=== PATIENT | male | born 1930 | race Caucasian/White ===

== ENCOUNTER 2016-07-17 18:50 | Inpatient (IN) | payer MEDICARE, BC ==
[~2016-07-17] VITALS: Ht 175.3 cm; Wt 113.9 kg
[2016-07-17 18:52] VITALS: BP 133/70
[2016-07-17] MEDS ORDERED: PERCOCET 5/3251 EACH PO (19:02)
[2016-07-17] MEDS ORDERED: PERCOCET1 TAB PO (19:03)
[2016-07-17] MEDS ORDERED: METFORMIN 500M500 MG PO (19:04)
[2016-07-17] MEDS ORDERED: METOPROLOL SUCC50 M1 PO (19:04)
[2016-07-17] MEDS ORDERED: WARFARIN SODIUM1 MG PO (19:05)
[2016-07-17] MEDS ORDERED: HYDROCHLOROTHIA25 M1 PO (19:05)
[2016-07-17] MEDS ORDERED: SYMBICORT1 AE1 IH (19:06)
--- NOTE | 2016-07-17 19:15 | Emergency Room Report ---
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 Y Clinical Suspician of Infection? Y Mental Status: 1 - Regular (Normal Baseline) Sepsis Risk:Possible Sepsis Risk Have you (or family members/close friends) recently traveled outside the [place]? N If Yes, where/when: Have you had exposure to infectious disease within the past month? N TB? Other? Specify: Source patient, RN notes reviewed Exam Limitations no limitations Comment Flu like symptoms with productive cougha dn SOA for a couple of days. Low grade fever today. History of COPD and uses inhalers and nebs at home but not on home O2 Cardiac Chest Pain Chest pain indicative of cardiac No Home Medications Reported Medications Oxycodone 5MG/[id number] (Oxycodone-Acetaminophen 5-325) 1 TAB PO Q4HP PRN PAIN OXYCODONE HCL/ACETAMINOPHEN (Percocet 5-325 MG Tablet) 1 TAB PO EVERY 6 HOUR Metoprolol Succinate Xl (Metoprolol ER 50MG) 50 MG PO DAILY METFORMIN HCL (Metformin 500MG) 500 MG PO BID WARFARIN SOD (Warfarin 1MG) 2 MG PO DAILY HYDROCHLOROTHIAZIDE (Hydrochlorothiazide) 25 MG PO DAILY BUDESONIDE/FORMOTEROL FUMARATE (Symbicort 160-4.5 Mcg Inhaler) 2 PUFF IH BID (Mabel KOO,Elvira) Timing/Duration this evening Severity moderate ALLERGIES Coded Allergies: No Known Allergies (07/17/16) (Elisa KOO,Baldemar Hernandez) History Medical History General CAD? Yes Angina: No ND: No Hypertension? Yes Hyperlipidemia? Yes CHF? No DVT? Yes PE? No COPD? Yes Asthma? Yes Anemia? No GERD? Yes Gastric ulcers? No GI Bleed? No Hernia? Yes Thyroid Problems? No Hypothyroidism? No CVA? No Seizures? No Diabetes? Yes Insulin Dependent: No Insulin Pump: No Home FSBS? Yes Renal Insuffiency? No End Stage Renal Disease? No UTI? No Stones? No BPH? No GB Disease: No Nephritic Syndrome? No Asplenia? No Hepatitis? No Sickle Cell Disease? No Arthritis? Yes Migraines? No Cataracts? Yes Glaucoma? No MRSA? No HIV? No TB? No Anxiety? No Depression? 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 Immunization Hx DT/Tetanus Unknown Surgical Hx Previous Surgery?Y BLADDER SURGERY , Appy, Bilat. cataracts, RIH Social History Smoking Hx Smoker: Former Smoker Tobacco: No Are you/the child exposed to second-hand smoke: No Alcohol Alcohol: No (Elvira Monroe MD) Social History Drugs none (Baldemar Pérez MD) Review of Systems All Other Systems Reviewed and Negative Constitutional see HPI ENT see HPI. Respiratory see HPI (Elvira Monroe MD) Cardiovascular denies chest pain Gastrointestinal denies diarrhea, denies vomiting Genitourinary denies: dysuria, frequency, hesitancy, hematuria. Musculoskeletal denies back pain, denies joint pain, denies joint swelling, denies neck pain Skin denies rash Psychiatric/Neurological denies seizure (Baldemar Pérez MD) Physical Exam Vital Signs Vital Signs Date Time Temp Pulse Resp B/P Pulse O2 O2 Flow FiO2 Ox Delivery Rate 07/17 2016 102.7 129 22 132/67 88 07/17 2006 100.5 112 22 132/67 88 07/17 1930 118 20 150/70 92 2 07/17 1910 20 94 2 07/17 1908 20 94 2 07/17 1852 100.2 112 20 133/70 94 2 General Appearance normal appearance, WD/WN, no apparent distress Ear, Nose, Throat normal ENT inspection Respiratory Status No: respiratory distress. Lung Sounds posterior: rales. right: rales. 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 2 or more SIRS Criteria Met? B/P:132/67 MAP:91 Creatinine >2.0? UA output<0.5ml/kg/hr for 2 hrs? Platelet count >100,000? Lactate >2.0mmol/1? INR >1.2 or PTT > than 60 sec? Evidence of Organ Dysfunction? Provider documented clinical suspician of infection? Y Sepsis Criteria Count: 2 Sepsis Risk: Possible Sepsis Risk Eye Exam - bilateral eye PERRL Gastrointestinal soft Extremities no calf tenderness, pedal edema Strength 4 Upper Ext (L), 4 Upper Ext (R), 4 Lower Ext (L), 4 Lower Ext (R) Mental status normal mood/affect Skin intact (Elisa KOO,Baldemar Hernandez) Medical Decision Making LABS/Meds/Orders Pt receiving controlled substance in ED? No Results/Orders Laboratory Tests 07/17/162030: ABG pH 7.49 H, ABG pCO2 (Temp Corrct 43.2, ABG pO2 (Temp Correct 56.3 L, ABG HCO3 31.9 H, ABG Total CO2 33.2 H, ABG O2 Sat (Calculated) 89.4 L, ABG Base Excess 8.5 H, Otto Test Y, Blood Gas Comments R/R 07/17/161920: Influenza Type A Ag DETECTED H, Influenza Type B Ag NOT DETECTED 07/17/161914: Urine Color YELLOW, Urine Appearance CLEAR, Urine pH 8.0, Ur Specific [place] 1.015, Urine Protein 1+ H, Urine Ketones NEGATIVE, Urine Blood 3+ H, Urine Nitrate NEGATIVE, Urine Bilirubin NEGATIVE, Urine Urobilinogen 0.2, Ur Leukocyte Esterase NEGATIVE, Urine RBC 20-50, Urine WBC 5-10, Ur Squamous Epith Cells OCC, Urine Glucose NEGATIVE 07/17/161854: Lactic Acid 2.0 07/17/161854: B-Natriuretic Peptide 160 H 07/17/161854: Sodium 137, Potassium 3.2 L, Chloride 95 L, Carbon Dioxide 33 H, BUN 11, Creatinine 0.8, Estimated Creat Clear 110, Estimated GFR (MDRD) 92, Glucose 160 H, Calcium 9.3, Total Bilirubin 0.7, AST 17, ALT 15, Alkaline Phosphatase 49, Creatine Kinase 76, CK-MB (CK-2) Rel Index 0.7, CK and CKMB Interp < 0.5, Troponin I < 0.02, Total Protein 8.1, Albumin 3.3 L, Globulin 4.8 H, Albumin/ Globulin Ratio 0.7 L, WBC 12.8 H, RBC 4.70, Hgb 11.4 L, Hct 36.5 L, MCV 77.7 L, RDW 16.0, Plt Count 311, MPV 5.9 L, Gran % 76.9, Gran # 9.8 H, Lymphocytes % 11.5, Monocytes % 11.2 H, Eosinophils % 0.1, Basophils % 0.3, Lymphocytes # 1.5, Monocytes # 1.4 H, Eosinophils # 0.0, Basophils # 0.0, PUBS MCHC 31.2 L, MCH 24.2 L Current Medication Orders Sig/Fannie Start time Last Medication Dose Route Stop Time Status Admin Ceftriaxone Sodium 0 .STK-MED ONE 07/17 2053 DC IV Acetaminophen 1,000 MG ONCE ONE 07/17 2029 DC 07/17 PO 07/17 Acetaminophen 0 .STK-MED ONE 07/17 2017 DC PO Levofloxacin/Dextrose 100 ML ONCE ONE 07/18 1999 r 07/17 IV 07/17 Oseltamivir Phosphate 75 MG ONCE ONE 07/18 1999 DC 07/17 PO 07/17 Levofloxacin/Dextrose 100 ML .STK-MED ONE 07/17 1957 DC IV Oseltamivir Phosphate 0 .STK-MED ONE 07/17 1953 DC PO Albuterol/Ipratropium 0 .STK-MED ONE 07/17 1930 DC INH Albuterol/Ipratropium 3 ML ONCE ONE 07/17 1929 DC 07/17 INH 07/17 1930 194 Sodium Chloride 10 ML PRN PRN 07/17 1914 AC IV 07/18 1910 Orders Procedure Date/time Status DIET-NOTHING BY MOUTH 07/18 B Active ARTERIAL BLOOD GAS REQUEST 07/17 1948 Active BRAIN NATRIURETIC PEPTIDE 07/17 1946 Complete CHEST-PORTABLE 07/17 1925 Active CULTURE, THROAT 07/17 1920 Active RT REQUEST DUONEB 07/18 1919 Active CULTURE, SPUTUM 07/18 1919 Active STREP SCREEN THROAT 07/18 1919 Complete INFLUENZA A&B ANTIGENS 07/18 1919 Complete IV SALINE LOCK 07/18 1911 Active CULTURE, BLOOD 07/18 1911 Active URINALYSIS/COMPLETE 07/18 1911 Complete LACTIC ACID 07/18 1911 Complete CBC WITH AUTO DIFF 07/18 1911 Complete CARDIAC ENZYMES 07/18 1911 Complete CHEM 12 PROFILE 07/18 1911 Complete LABS/Meds/Orders Pt receiving controlled substance in ED? No XRAY/CT/US XRAY/CT/US XRAY chest XR interpretation by reviewed by me Xray Results abnormal (possible rll cap) (Baldemar Pérez MD) Departure Departure Time of Disposition 1956 Disposition Still a Patient Clinical Impression Primary Impression: RLL pneumonia Qualifiers: Pneumonia type: due to unspecified organism Qualified Code: J18.9 - Pneumonia, unspecified organism Secondary Impressions: Influenza A Condition STABLE Patient Instructions DI for Influenza -- Adult, Influenza Discharge Counseling Counseled pt/family regarding diagnosis, test results, medications/RX, follow up needs ED Critical Care Critical Care No If Critical Care minutes are documented, the time involved in the performance of seperately reportable procedures was not counted toward critical care time documented. I directly delivered medical care to this critically ill and/or injured patient. Timely evaluation and treatment was necessary to address the significant organ system(s) dysfunction present in this patient. (Elvira Monroe MD) Departure Referrals SUSIE CAMACHO (Family) discussed with dr munroe (Baldemar Pérez MD) at 195 at 2055
[2016-07-17 19:21] LABS: URINE BILIRUBIN - DIPSTICK NEGATIVE (NEG); URINE BLOOD 3+ (NEG)
[2016-07-17 19:26] LABS: HEMOGLOBIN 11.4 g/dL (14.1-18.0); LYMPH # 1.5 K/mm3 (0.7-4.5); LYMPH % 11.5 % (10-50)
[2016-07-17 19:27] LABS: URINE SQUAMOUS CELLS OCC #/hpf (OCC)
[2016-07-17 19:42] LABS: BUN 11 mg/dL (7-18)
[2016-07-17 19:44] LABS: GFR (ESTIMATED) 92 ML/MIN (>60)
[2016-07-17 19:44] LABS: STREP SCREEN (RAPID) NEGATIVE
[2016-07-17 20:32] LABS: ARTERIAL PO2 56.3 MMHG (80-100); ARTERIAL TCO2 33.2 MMOL/L (23-27)
[2016-07-17 20:33] LABS: ALLEN'S TEST Y; ARTERIAL ABE 8.5 MMOL/L (-2.4-+2.3); OXYGEN R/A
[2016-07-17 21:51] VITALS: BP 105/34
[2016-07-17 23:12] VITALS: BP 105/34
[2016-07-17 23:57] VITALS: BP 104/47
[2016-07-18] VITALS (8 sets, daily range): BP systolic 114–168; BP diastolic 60–85
[2016-07-18 06:45] LABS: HEMOGLOBIN 10.6 g/dL (14.1-18.0); LYMPH # 1.6 K/mm3 (0.7-4.5); LYMPH % 12.8 % (10-50)
--- NOTE | 2016-07-18 09:50 | RADIOLOGY REPORT PS360 ---
CHEST-PORTABLE ORDERING PHYSICIAN : Elvira Monroe MD PATIENT AGE: 86 years GENDER: Male INDICATION: Short of breath. Cough.SOA, COUGH No previous PROCEDURE: CHEST-PORTABLE FINDINGS: No previous studies. Leftward Rotated chest film demonstrates what appears to be mild vascular congestion possible mild CHF. Cardiomegaly noted. Postsurgical changes project over right jaqui. Blunting right CP angle with question mild pleural thickening blunting towards right lung base. Possible small right pleural effusion versus chronic pleural changes. Likely underlying chronic changes. Right base. . There is increased density right lung base-Difficult to exclude a subtle early infiltrate at the right lung base on this limited portable study in this very large patient. If symptoms progress a follow-up PA and lateral chest would be suggested. Benign Calcified granuloma left midlung IMPRESSION. Cardiomegaly with mild vascular congestion. Blunting right CP angle could reflect small pleural effusion vs mild chronic pleural change. Question minimal patchy infiltrate at right lung base, right lower lobe. If symptoms progress a follow-up PA and lateral chest suggested
--- NOTE | 2016-07-18 11:52 | PHARMACY CLINIC NOTE ---
Patient Demographics Patient Demographics Admission date: 07/17/16 Date: 07/18/16 Time: 1151 Allergies Coded Allergies: No Known Allergies (07/17/16) HEIGHT- FT: 5 IN: 9.00 K.387 VTE General Information Labs: Laboratory Tests 07/18 07/17 0605 1855 Coagulation PT (9.4 - 11.8 SECONDS) 16.0 H INR (0.9 - 1.1) 1.50 H Hematology Hgb (14.1 - 18.0 g/dL) 10.6 L 11.4 L Hct (42.0 - 52.0 %) 33.2 L 36.5 L Plt Count (142 - 424 K/mm3) 264 311 Disclaimer The following section includes nursing documentation that has been pulled in for pharmacy review. Patient's VTE score: 5 Patient's VTE Risk: LOW RISK Clinical trial participant? No VTE prophylaxis [id number] VTE prophylaxis ordered? Yes Type of prophylaxis/treatment: HARRY (AND WARFARIN (1.50)) at 1152
--- NOTE | 2016-07-18 12:31 | HISTORY AND PHYSICAL REPORT ---
History and Physical (FCA) Date of admission: 07/17/16 Chief complaint: Cough and fever History: History of Present Illness: 86 year old male who receives his primary care at [facility] in [place], [place], presented to [facility] ER yesterday complaining of a 2 day history of cough and congestion associated with low grade fever and body aches. Patient can not remember any sick contacts. He has not taken any treatment at home. He is somewhat of a poor historian and no family is present at time of this exam. Most of the history is learned from discussion with the ER doctor and the ER note. Past Medical History: Medical History: CAD? Yes Angina: No [place]: No Hypertension? Yes Hyperlipidemia? Yes CHF? No DVT? Yes PE? No COPD? Yes Asthma? Yes Anemia? No GERD? Yes Gastric ulcers? No GI Bleed? No Hernia? Yes Thyroid Problems? No Hypothyroidism? No CVA? No Seizures? No Diabetes? Yes Insulin Dependent: No Insulin Pump: No Home FSBS? Yes Renal Insuffiency? No UTI? No Stones? No BPH? No GB Disease: No Nephritic Syndrome? No Asplenia? No Hepatitis? No Sickle Cell Disease? No Arthritis? Yes Migraines? No Cataracts? Yes Glaucoma? No MRSA? No HIV? No TB? No Anxiety? No Depression? 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 Surgical history: Previous Surgery?Y BLADDER SURGERY APPY [facility] Medications: Reported Medications OXYCODONE HCL/ACETAMINOPHEN (Percocet 5-325 MG Tablet) 1 TAB PO EVERY 6 HOUR Metoprolol Succinate Xl (Metoprolol ER 50MG) 50 MG PO DAILY METFORMIN HCL (Metformin 500MG) 500 MG PO BID WARFARIN SOD (Warfarin 1MG) 2 MG PO DAILY HYDROCHLOROTHIAZIDE (Hydrochlorothiazide) 25 MG PO DAILY BUDESONIDE/FORMOTEROL FUMARATE (Symbicort 160-4.5 Mcg Inhaler) 2 PUFF IH BID Allergies: Coded Allergies: No Known Allergies (07/17/16) Family History: Family history: Postive for: unknown. Social History: Smoking Hx Tobacco: No Smoker: Former Smoker Type: Cigarettes Packs/day: 1 1/2 - 2 Packs Are you exposed to second hand No Alcohol: Alcohol: No Hx of Drug Use: Drug Use? No Review of Systems: Patient unresponsive? No Constitutional Positive for: fatigue. Cardiovascular No: chest pain. GI No: diarrhea. (male) No: urgency. Skin No: rash. Neurological No: dizziness. Eyes No: vision loss. Heme No: bleeding. Psychiatric No: delusional. 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 as tested, no focal deficit Lab data: Labs: Laboratory Tests 07/18/16 1114: POC Glucose 124 H 07/18/16 0644: POC Glucose 128 H 07/18/16 0605: Sodium 139, Potassium 3.3 L, Chloride 97 L, Carbon Dioxide 34 H, BUN 14, Creatinine 0.9, Estimated Creat Clear 57, Estimated GFR (MDRD) 80, Glucose 140 H, Calcium 9.0, WBC 12.1 H, RBC 4.22 L, Hgb 10.6 L, Hct 33.2 L, MCV 78.6 L, RDW 16.1, Plt Count 264, MPV 5.9 L, Gran % 78.3, Gran # 9.5 H, Lymphocytes % 12.8, Monocytes % 8.5, Eosinophils % 0.0 L, Basophils % 0.3, Lymphocytes # 1.6, Monocytes # 1.0, Eosinophils # 0.0, Basophils # 0.0, PUBS MCHC 31.9, MCH 25.1 L 07/17/162030: ABG pH 7.49 H, ABG pCO2 (Temp Corrct 43.2, ABG pO2 (Temp Correct 56.3 L, ABG HCO3 31.9 H, ABG Total CO2 33.2 H, ABG O2 Sat (Calculated) 89.4 L, ABG Base Excess 8.5 H, Otto Test Y, Blood Gas Comments R/R 07/17/161920: Influenza Type A Ag DETECTED H, Influenza Type B Ag NOT DETECTED 07/17/161914: Urine Color YELLOW, Urine Appearance CLEAR, Urine pH 8.0, Ur Specific [place] 1.015, Urine Protein 1+ H, Urine Ketones NEGATIVE, Urine Blood 3+ H, Urine Nitrate NEGATIVE, Urine Bilirubin NEGATIVE, Urine Urobilinogen 0.2, Ur Leukocyte Esterase NEGATIVE, Urine RBC 20-50, Urine WBC 5-10, Ur Squamous Epith Cells OCC, Urine Glucose NEGATIVE 07/17/161854: Lactic Acid 2.0 07/17/161854: B-Natriuretic Peptide 160 H 07/17/161854: Sodium 137, Potassium 3.2 L, Chloride 95 L, Carbon Dioxide 33 H, BUN 11, Creatinine 0.8, Estimated Creat Clear 110, Estimated GFR (MDRD) 92, Glucose 160 H, Calcium 9.3, Total Bilirubin 0.7, AST 17, ALT 15, Alkaline Phosphatase 49, Creatine Kinase 76, CK-MB (CK-2) Rel Index 0.7, CK and CKMB Interp < 0.5, Troponin I < 0.02, Total Protein 8.1, Albumin 3.3 L, Globulin 4.8 H, Albumin/ Globulin Ratio 0.7 L, PT 16.0 H, INR 1.50 H, WBC 12.8 H, RBC 4.70, Hgb 11.4 L, Hct 36.5 L, MCV 77.7 L, RDW 16.0, Plt Count 311, MPV 5.9 L, Gran % 76.9, Gran # 9.8 H, Lymphocytes % 11.5, Monocytes % 11.2 H, Eosinophils % 0.1, Basophils % 0.3, Lymphocytes # 1.5, Monocytes # 1.4 H, Eosinophils # 0.0, Basophils # 0.0, PUBS MCHC 31.2 L, MCH 24.2 L Microbiology 07/17 1920 THROAT: Throat Culture - RECD 07/17 1854 BLOOD: Anaerobic Blood Culture - RECD 07/17 1854 BLOOD: Aerobic Blood Culture - RECD 07/17 1854 BLOOD: Anaerobic Blood Culture - RECD 07/17 1854 BLOOD: Aerobic Blood Culture - RECD Radiology results: Results: CXR shows a RLL pneumonia Diagnosis(es): 1. RLL pneumonia Status: Acute 2. Influenza A Status: Acute 3. Hypokalemia Status: Acute 4. DM2 (diabetes mellitus, type 2) Status: Chronic 5. HTN (hypertension) Status: Chronic 6. 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 Subtherapeutic international normalized ratio (INR) 8. Leg edema, right Status: Chronic 9. Obesity Status: Chronic Plan: Patient admitted to [facility] for further treatment of his pneumonia and influenza. Will give extra dose of Coumadin today and replace potassium. at [id number]
--- NOTE | 2016-07-18 12:31 | HISTORY AND PHYSICAL REPORT ---
History and Physical (FCA) Date of admission: 07/17/16 Chief complaint: Cough and fever History: History of Present Illness: 86 year old male who receives his primary care at [facility] in [place], [place], presented to [facility] ER yesterday complaining of a 2 day history of cough and congestion associated with low grade fever and body aches. Patient can not remember any sick contacts. He has not taken any treatment at home. He is somewhat of a poor historian and no family is present at time of this exam. Most of the history is learned from discussion with the ER doctor and the ER note. Past Medical History: Medical History: CAD? Yes Angina: No ND: No Hypertension? Yes Hyperlipidemia? Yes CHF? No DVT? Yes PE? No COPD? Yes Asthma? Yes Anemia? No GERD? Yes Gastric ulcers? No GI Bleed? No Hernia? Yes Thyroid Problems? No Hypothyroidism? No CVA? No Seizures? No Diabetes? Yes Insulin Dependent: No Insulin Pump: No Home FSBS? Yes Renal Insuffiency? No UTI? No Stones? No BPH? No GB Disease: No Nephritic Syndrome? No Asplenia? No Hepatitis? No Sickle Cell Disease? No Arthritis? Yes Migraines? No Cataracts? Yes Glaucoma? No MRSA? No HIV? No TB? No Anxiety? No Depression? 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 Surgical history: Previous Surgery?Y BLADDER SURGERY APPY SHAYLEE CATARACTS [facility] Medications: Reported Medications OXYCODONE HCL/ACETAMINOPHEN (Percocet 5-325 MG Tablet) 1 TAB PO EVERY 6 HOUR Metoprolol Succinate Xl (Metoprolol ER 50MG) 50 MG PO DAILY METFORMIN HCL (Metformin 500MG) 500 MG PO BID WARFARIN SOD (Warfarin 1MG) 2 MG PO DAILY HYDROCHLOROTHIAZIDE (Hydrochlorothiazide) 25 MG PO DAILY BUDESONIDE/FORMOTEROL FUMARATE (Symbicort 160-4.5 Mcg Inhaler) 2 PUFF IH BID Allergies: Coded Allergies: No Known Allergies (07/17/16) Family History: Family history: Postive for: unknown. Social History: Smoking Hx Tobacco: No Smoker: Former Smoker Type: Cigarettes Packs/day: 1 1/2 - 2 Packs Are you exposed to second hand No Alcohol: Alcohol: No Hx of Drug Use: Drug Use? No Review of Systems: Patient unresponsive? No Constitutional Positive for: fatigue. Cardiovascular No: chest pain. GI No: diarrhea. (male) No: urgency. Skin No: rash. Neurological No: dizziness. Eyes No: vision loss. Heme No: bleeding. Psychiatric No: delusional. 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, no focal deficit Lab data: Labs: Laboratory Tests 07/18/16 1114: POC Glucose 124 H 07/18/16 0644: POC Glucose 128 H 07/18/16 0605: Sodium 139, Potassium 3.3 L, Chloride 97 L, Carbon Dioxide 34 H, BUN 14, Creatinine 0.9, Estimated Creat Clear 57, Estimated GFR (MDRD) 80, Glucose 140 H, Calcium 9.0, WBC 12.1 H, RBC 4.22 L, Hgb 10.6 L, Hct 33.2 L, MCV 78.6 L, RDW 16.1, Plt Count 264, MPV 5.9 L, Gran % 78.3, Gran # 9.5 H, Lymphocytes % 12.8, Monocytes % 8.5, Eosinophils % 0.0 L, Basophils % 0.3, Lymphocytes # 1.6, Monocytes # 1.0, Eosinophils # 0.0, Basophils # 0.0, PUBS MCHC 31.9, MCH 25.1 L 07/17/162030: ABG pH 7.49 H, ABG pCO2 (Temp Corrct 43.2, ABG pO2 (Temp Correct 56.3 L, ABG HCO3 31.9 H, ABG Total CO2 33.2 H, ABG O2 Sat (Calculated) 89.4 L, ABG Base Excess 8.5 H, Otto Test Y, Blood Gas Comments R/R 07/17/161920: Influenza Type A Ag DETECTED H, Influenza Type B Ag NOT DETECTED 07/17/161914: Urine Color YELLOW, Urine Appearance CLEAR, Urine pH 8.0, Ur Specific [place] 1.015, Urine Protein 1+ H, Urine Ketones NEGATIVE, Urine Blood 3+ H, Urine Nitrate NEGATIVE, Urine Bilirubin NEGATIVE, Urine Urobilinogen 0.2, Ur Leukocyte Esterase NEGATIVE, Urine RBC 20-50, Urine WBC 5-10, Ur Squamous Epith Cells OCC, Urine Glucose NEGATIVE 07/17/161854: Lactic Acid 2.0 07/17/161854: B-Natriuretic Peptide 160 H 07/17/161854: Sodium 137, Potassium 3.2 L, Chloride 95 L, Carbon Dioxide 33 H, BUN 11, Creatinine 0.8, Estimated Creat Clear 110, Estimated GFR (MDRD) 92, Glucose 160 H, Calcium 9.3, Total Bilirubin 0.7, AST 17, ALT 15, Alkaline Phosphatase 49, Creatine Kinase 76, CK-MB (CK-2) Rel Index 0.7, CK and CKMB Interp < 0.5, Troponin I < 0.02, Total Protein 8.1, Albumin 3.3 L, Globulin 4.8 H, Albumin/ Globulin Ratio 0.7 L, PT 16.0 H, INR 1.50 H, WBC 12.8 H, RBC 4.70, Hgb 11.4 L, Hct 36.5 L, MCV 77.7 L, RDW 16.0, Plt Count 311, MPV 5.9 L, Gran % 76.9, Gran # 9.8 H, Lymphocytes % 11.5, Monocytes % 11.2 H, Eosinophils % 0.1, Basophils % 0.3, Lymphocytes # 1.5, Monocytes # 1.4 H, Eosinophils # 0.0, Basophils # 0.0, PUBS MCHC 31.2 L, MCH 24.2 L Microbiology 07/17 1920 THROAT: Throat Culture - RECD 07/17 1854 BLOOD: Anaerobic Blood Culture - RECD 07/17 1854 BLOOD: Aerobic Blood Culture - RECD 07/17 1854 BLOOD: Anaerobic Blood Culture - RECD 07/17 1854 BLOOD: Aerobic Blood Culture - RECD Radiology results: Results: CXR shows a RLL pneumonia Diagnosis(es): 1. RLL pneumonia Status: Acute 2. Influenza A Status: Acute 3. Hypokalemia Status: Acute 4. DM2 (diabetes mellitus, type 2) Status: Chronic 5. HTN (hypertension) Status: Chronic 6. 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 Subtherapeutic international normalized ratio (INR) 8. Leg edema, right Status: Chronic 9. Obesity Status: Chronic Plan: Patient admitted to [facility] for further treatment of his pneumonia and influenza. Will give extra dose of Coumadin today and replace potassium. at [id number]
[2016-07-19] VITALS (8 sets, daily range): BP systolic 121–153; BP diastolic 60–89
[2016-07-19 06:25] LABS: HEMOGLOBIN 10.7 g/dL (14.1-18.0); LYMPH # 1.7 K/mm3 (0.7-4.5); LYMPH % 24.9 % (10-50)
--- NOTE | 2016-07-19 08:50 | ACUTE CARE PROGRESS NOTE (QUA) ---
Progress Notes Subjective Date 07/20/16 Time 0839 Note States that he slept at intervals and may be a little better; continues with a nonproductive cough. denies CP; eating without problems; bowels are moving; voiding QS Objective Findings Laboratory Tests 07/19/16 0618: POC Glucose 117 H 07/19/16 0600: Sodium 140, Potassium 3.5, Chloride 101, Carbon Dioxide 34 H, BUN 15, Creatinine 0.8, Estimated Creat Clear 109, Estimated GFR (MDRD) 92, Glucose 112 H, Calcium 8.4 L, PT 13.4 H, INR 1.25 H, WBC 6.8, RBC 4.32 L, Hgb 10.7 L, Hct 34.4 L, MCV 79.8 L, RDW 16.0, Plt Count 230, MPV 5.8 L, Gran % 64.8, Gran # 4.4, Lymphocytes % 24.9, Monocytes % 10.0 H, Eosinophils % 0.0 L, Basophils % 0.3, Lymphocytes # 1.7, Monocytes # 0.7, Eosinophils # 0.0, Basophils # 0.0, PUBS MCHC 31.1 L, MCH 24.8 L 07/18/16 2113: POC Glucose 111 H 07/18/16 1703: POC Glucose 113 H 07/18/16 1114: POC Glucose 124 H Vital Signs Date Time Temp Pulse Resp B/P Pulse O2 O2 Flow FiO2 Ox Delivery Rate 07/19 0834 98.9 93 18 151/82 95 2 07/19 0754 98.9 93 18 151/82 95 OXYGEN 2 07/19 0640 2 07/19 0541 2 07/19 0541 93 OXYGEN 2 07/19 0531 2 07/19 0515 2 07/19 0324 2 07/19 0324 98.8 83 20 123/60 91 OXYGEN 2 07/19 0315 2 07/19 0306 90 ROOM AIR 07/19 0134 2 07/19 0117 2 07/18 2328 2 07/18 2328 99.7 97 22 114/60 96 OXYGEN 2 07/18 2310 2 07/18 2155 2 07/180 3 07/18 2016 2 07/18 2016 98.8 104 25 168/85 91 OXYGEN 2 07/18 2014 98.8 104 25 168/85 91 3 07/18 1926 2 07/18 1846 2 07/18 1819 2 07/18 1704 2 07/18 1654 2 07/18 1654 98.3 98 20 153/77 90 OXYGEN 2 07/18 1550 2 07/18 1440 2 07/18 1409 2 07/18 1215 2 07/18 1215 98.6 102 20 139/68 90 OXYGEN 2 07/18 1116 2 07/18 0944 99.7 113 20 148/65 95 Current Medications Warfarin Sodium 5 MG 1100 PO (UNV) Azithromycin 500 MG Q24H IV Sodium Chloride 250 ML Sodium Chloride 1,000 ML .STK-MED ONE IV (DC) Potassium Chloride 20 MEQ BID PO Warfarin Sodium 2 MG ONCE ONE PO (DC) Warfarin Sodium 2 MG 1100 PO (DC) Ceftriaxone Sodium 1 GM DAILY IM Lidocaine HCl 0 DAILY IM (DC) Metoprolol Succinate 50 MG DAILY PO Oseltamivir Phosphate 75 MG BID PO Polyethylene Glycol 17 GM DAILY PO Sodium Chloride 10 ML PRN PRN IV Diagnostic Test (Pha) 1 EACH W/MEALS&HS FS Insulin Human [rDNA origin] SEE ADMIN CRITERIA FOR LOW INTENSITY SS W/MEALS&HS SC Albuterol 2.5 MG Q6H6 INH Acetaminophen 650 MG Q4HP PRN PO Ondansetron HCl 4 MG Q6HP PRN IV Sodium Chloride 1,000 ML .[id number] IV Sodium Chloride 10 ML PRN PRN IV (DC) 07/18 1500 07/18 2300 07/19 0700 Intake Total 600 825 849 Output Total Balance 600 825 849 Intake, IV 705 849 Intake, Oral 600 120 Patient 251 lb Weight Last VS-Temp:98.9 B/P:151/82 Pulse:93 Resp:18 SaO2:95 OXYGEN Last weight lbs:251 oz:0 K.852 Method:Bed Scales Exam General appearance: alert, active, no acute distress, sitting on bedside eating breakfast Cardiovascular: regular rate & rhythm Respiratory: bilateral coarse rhonchi throughout ABD: no tenderness, bowel sounds present, obese Extremities: trace of leg edema bilaterally Assessment/Plan Problem List 1. RLL pneumonia Status: Acute 2. Influenza A Status: Acute 3. Hypokalemia Status: Acute 4. DM2 (diabetes mellitus, type 2) Status: Chronic 5. HTN (hypertension) Status: Chronic 6. 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 Subtherapeutic international normalized ratio (INR) 8. Leg edema, right Status: Chronic 9. Obesity Status: Chronic Patient condition Improving Plan: continue current care, encourage OOB to chair activity; increase coumadin This inpt stay is expected to cross 2 MNs from start of care Yes (Alessandra Mary APRN) Assessment/Plan Problem List 1. RLL pneumonia Status: Acute 2. Influenza A Status: Acute 3. Hypokalemia Status: Acute 4. DM2 (diabetes mellitus, type 2) Status: Chronic 5. HTN (hypertension) Status: Chronic 6. 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 Subtherapeutic international normalized ratio (INR) 8. Leg edema, right Status: Chronic 9. Obesity Status: Chronic Comments: Patient seen and agree with above note. (Perfecto Benavides MD) at 0850 at 0906
[2016-07-20] VITALS (7 sets, daily range): BP systolic 115–145; BP diastolic 62–79
--- NOTE | 2016-07-20 08:22 | ACUTE CARE PROGRESS NOTE (QUA) ---
Progress Notes Subjective Date 07/20/16 Time 0715 Note States he felt awlful when he came in and feels better today; breathing is better; continues with [employer] cough-just cannot get anything up; eating is better; voiding QS; sat up in the chair yesterday without problems Objective Findings Vital Signs Date Time Temp Pulse Resp B/P Pulse O2 O2 Flow FiO2 Ox Delivery Rate 07/20 0804 98.2 97 18 145/79 97 2 07/20 0741 2 07/20 0741 98.2 97 18 145/79 97 OXYGEN 2 07/20 0618 2 07/20 0609 2 07/20 0555 2 07/20 0555 92 OXYGEN 2 07/20 0509 2 07/20 0334 2 07/20 0334 98.8 85 18 136/69 97 OXYGEN 2 07/20 0326 2 07/20 0138 2 07/20 0042 2 07/19 2357 88 ROOM AIR 07/19 2329 2 07/19 2329 97.8 90 18 140/89 97 OXYGEN 2 07/19 2315 2 07/19 2246 2 07/19 2005 95 OXYGEN 2 07/19 1957 2 07/19 195 98.9 98 18 127/61 95 2 07/19 1914 2 07/19 1914 98.9 98 18 127/61 86 OXYGEN 2 07/19 1901 2 07/19 1901 85 ROOM AIR 07/19 1900 2 07/19 1748 2 07/19 1623 97.5 92 18 121/63 90 OXYGEN 07/19 1615 2 07/19 1500 2 07/19 1300 2 07/19 1141 97.7 105 18 153/75 94 OXYGEN 07/19 1053 2 07/19 0900 2 07/19 0834 98.9 93 18 151/82 95 2 Current Medications Warfarin Sodium 5 MG 1100 PO Sodium Chloride 10 ML PRN PRN IV Azithromycin 500 MG Q24H IV Sodium Chloride 250 ML Potassium Chloride 20 MEQ BID PO Warfarin Sodium 2 MG 1100 PO (DC) Ceftriaxone Sodium 1 GM DAILY IM Metoprolol Succinate 50 MG DAILY PO Oseltamivir Phosphate 75 MG BID PO Polyethylene Glycol 17 GM DAILY PO Sodium Chloride 10 ML PRN PRN IV Diagnostic Test (Pha) 1 EACH W/MEALS&HS FS Insulin Human [rDNA origin] SEE ADMIN CRITERIA FOR LOW INTENSITY SS W/MEALS&HS SC Albuterol 2.5 MG Q6H6 INH Acetaminophen 650 MG Q4HP PRN PO Ondansetron HCl 4 MG Q6HP PRN IV Sodium Chloride 1,000 ML .[id number] IV (DC) 07/19 1500 07/19 2300 07/20 0700 Intake Total 360 360 250 Output Total 250 600 100 Balance 110 -240 150 Intake, IV 250 Intake, Oral 360 360 Output, Urine 250 600 100 Patient 251 lb Weight Last VS-Temp:98.2 B/P:145/79 Pulse:97 Resp:18 SaO2:97 OXYGEN Last weight lbs:251 oz:0 K.853 Method:Bed Scales Exam General appearance: alert, no acute distress, obese Cardiovascular: regular rate & rhythm Respiratory: rhonchi bilaterally with occasional coarse wheeze; improved ABD: soft, no tenderness, bowel sounds present, obese Extremities: no calf tenderness, trace of bilateral leg edema Assessment/Plan Problem List 1. RLL pneumonia Status: Acute 2. Influenza A Status: Acute 3. Hypokalemia Status: Acute 4. DM2 (diabetes mellitus, type 2) Status: Chronic 5. HTN (hypertension) Status: Chronic 6. 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 Subtherapeutic international normalized ratio (INR) 8. Leg edema, right Status: Chronic 9. Obesity Status: Chronic Patient condition Improving Plan: continue current care, INR pending This inpt stay is expected to cross 2 MNs from start of care Yes (Alessandra Mary APRN) Assessment/Plan Problem List 1. RLL pneumonia Status: Acute 2. Influenza A Status: Acute 3. Hypokalemia Status: Acute 4. DM2 (diabetes mellitus, type 2) Status: Chronic 5. HTN (hypertension) Status: Chronic 6. 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 Subtherapeutic international normalized ratio (INR) 8. Leg edema, right Status: Chronic 9. Obesity Status: Chronic Comments: Patient seen and agree with above note. (Perfecto Benavides MD) at 0821 at 0912
[2016-07-21 03:40] VITALS: BP 153/82
[2016-07-21 07:39] VITALS: BP 156/73
--- NOTE | 2016-07-21 08:07 | ACUTE CARE PROGRESS NOTE (QUA) ---
See Addendum Progress Notes Subjective Date 07/21/16 Time 0730 Note feels better and ready to go home; has less cough and some production now; denies SOB; has been wearing O2 most of time; eating well; bowels have moved; voiding QS; was OOB in the chair yesterday Objective Findings Laboratory Tests 07/20/16 0855: PT 17.4 H, INR 1.63 H Vital Signs Date Time Temp Pulse Resp B/P Pulse O2 O2 Flow FiO2 Ox Delivery Rate 07/21 0739 2 07/21 0739 98.2 100 18 156/73 86 ROOM AIR 07/21 0643 2 07/21 0621 2 07/21 0548 2 07/21 0548 91 ROOM AIR 07/21 0504 2 07/21 0342 92 ROOM AIR 07/21 0340 2 07/21 0340 97.3 88 18 153/82 97 OXYGEN 2 07/21 0319 2 07/21 0145 2 07/21 0050 2 07/20 2334 2 07/20 2330 2 07/20 2330 97.4 102 18 134/66 96 OXYGEN 2 07/20 2310 2 07/20 2144 2 07/20 2140 2 07/20 2140 97.4 102 18 134/66 96 2 07/20 1932 2 07/20 1932 99.3 100 16 115/69 90 OXYGEN 2 07/20 1855 2 07/20 1851 2 07/20 1800 2 07/20 1800 92 OXYGEN 2 07/20 1700 2 07/20 1610 2 07/20 1610 97.7 98 16 120/62 96 OXYGEN 2 07/20 1458 2 07/20 1351 2 07/20 1308 2 07/20 1139 2 07/20 1139 97.9 98 16 142/79 98 OXYGEN 2 07/20 1059 2 07/20 1000 2 07/20 0900 2 Current Medications Warfarin Sodium 5 MG 1100 PO Sodium Chloride 10 ML PRN PRN IV Azithromycin 500 MG Q24H IV Sodium Chloride 250 ML Potassium Chloride 20 MEQ BID PO Ceftriaxone Sodium 1 GM DAILY IM Metoprolol Succinate 50 MG DAILY PO Oseltamivir Phosphate 75 MG BID PO Polyethylene Glycol 17 GM DAILY PO Sodium Chloride 10 ML PRN PRN IV Diagnostic Test (Pha) 1 EACH W/MEALS&HS FS Insulin Human [rDNA origin] SEE ADMIN CRITERIA FOR LOW INTENSITY SS W/MEALS&HS SC Albuterol 2.5 MG Q6H6 INH Acetaminophen 650 MG Q4HP PRN PO Ondansetron HCl 4 MG Q6HP PRN IV 07/20 1500 07/20 2300 07/21 0700 Intake Total 600 600 Output Total 100 100 75 Balance 500 500 -75 Intake, Oral 600 600 Output, Urine 100 100 75 Last VS-Temp:98.2 B/P:156/73 Pulse:100 Resp:18 SaO2:86 ROOM AIR Last weight lbs:251 oz:0 K.853 Method:Bed Scales Exam General appearance: alert, active, no acute distress, obese, moving much easier this AM Cardiovascular: regular rate & rhythm Respiratory: scattered wheezing in upper lobes with bilateral rhonchi; O2 removed ABD: non-distended, soft, no tenderness, bowel sounds present Extremities: no peripheral edema Neuro: alert, oriented Assessment/Plan Problem List 1. RLL pneumonia Status: Acute 2. Influenza A Status: Acute 3. Hypokalemia Status: Acute 4. DM2 (diabetes mellitus, type 2) Status: Chronic 5. HTN (hypertension) Status: Chronic 6. 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 Subtherapeutic international normalized ratio (INR) 8. Leg edema, right Status: Chronic 9. Obesity Status: Chronic Patient condition Improved Plan: continue current care This inpt stay is expected to cross 2 MNs from start of care Yes Antibiotic Stewardship (2) Current Culture Results Microbiology 07/17 1920 THROAT: Throat Culture - COMP 07/17 1854 BLOOD: Anaerobic Blood Culture - RES 07/17 1854 BLOOD: Aerobic Blood Culture - RES 07/17 UNK SPUTUM: Sputum Culture - CAN Cancelled: Auto-cancelled after 3 days. 07/17 UNK SPUTUM: Gram Stain - CAN Cancelled: Auto-cancelled after 3 days. Infxn that will respond? Yes Right drug,dose,and route? Yes More targeted antbx? No How long atbx needed? 10 at 0810
--- NOTE | 2016-07-21 10:50 | RADIOLOGY REPORT PS360 ---
CHEST(2 VIEWS-NOT PORTABLE) HISTORY: pneumonia ORDERING PHYSICIAN: Perfecto Benavides MD PATIENT AGE: 86 years COMPARISON: 07/17/2016 FINDINGS: Mild cardiomegaly with pulmonary venous congestion consistent with mild CHF. This appears somewhat worse on today's exam. There are postsurgical changes in the right midlung with chronic changes noted. Increased markings are present in the right mid and lower lung zone suspicious for underlying infiltrate. Chronic interstitial changes are noted.. No acute bony abnormalities. IMPRESSION: Congestive heart failure slightly worse with right lower lobe pneumonia which also appear slightly worse
[2016-07-21 11:16] VITALS: BP 130/72
[2016-07-21 16:06] VITALS: BP 168/81
--- NOTE | 2016-07-21 17:34 | ACUTE CARE PROGRESS NOTE (QUA) ---
Progress Notes Subjective Date 07/21/16 Time 1733 Note Patient feels a little better, still with some SOB today. Objective Reviewed: radiology report (CXR w/ signs of CHF) Assessment/Plan Problem List 1. RLL pneumonia Status: Acute 2. Influenza A Status: Acute 3. Hypokalemia Status: Acute 4. DM2 (diabetes mellitus, type 2) Status: Chronic 5. HTN (hypertension) Status: Chronic 6. 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 Subtherapeutic international normalized ratio (INR) 8. Leg edema, right Status: Chronic 9. Obesity Status: Chronic This inpt stay is expected to cross 2 MNs from start of care Yes Comments: Will give a dose of IV Lasix and check Echo. Antibiotic Stewardship (2) Infxn that will respond? Yes Right drug,dose,and route? Yes More targeted antbx? No at 1731
[2016-07-21 19:28] VITALS: BP 166/68
[2016-07-21 23:53] VITALS: BP 145/95
[2016-07-22] VITALS (7 sets, daily range): BP systolic 144–158; BP diastolic 67–90
--- NOTE | 2016-07-22 08:51 | ACUTE CARE PROGRESS NOTE (QUA) ---
Progress Notes Subjective Date 07/22/16 Time 0847 Note Patient feeling better today. He is sitting up eating his breakfast. He denies any pain or shortness of air. He has his oxygen off while eating his breakfast. He slept well. Objective Findings Last VS-Temp:97.9 B/P:156/81 Pulse:90 Resp:18 SaO2:98 OXYGEN Last weight lbs:251 oz:0 K.853 Method:Bed Scales Laboratory Tests 07/21/16 0858: PT 28.6 H, INR 2.67 H Exam General appearance: alert, awake, no acute distress Cardiovascular: regular rate & rhythm Respiratory: faint bibasilar rales ABD: non-distended, normal bowel sounds, no rebound, soft, no tenderness, no guarding Extremities: 1+ pretibial edema bilaterally Assessment/Plan Problem List 1. RLL pneumonia Status: Acute 2. Influenza A Status: Acute 3. Hypokalemia Status: Acute 4. DM2 (diabetes mellitus, type 2) Status: Chronic 5. HTN (hypertension) Status: Chronic 6. 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 Subtherapeutic international normalized ratio (INR) 8. Leg edema, right Status: Chronic 9. Obesity Status: Chronic Plan: Pt received lasix yesterday d/t CHF on a CXR. Checking echo today. This inpt stay is expected to cross 2 MNs from start of care Yes (Aleena Munguia) Assessment/Plan Problem List 1. RLL pneumonia Status: Acute 2. Influenza A Status: Acute 3. Hypokalemia Status: Acute 4. DM2 (diabetes mellitus, type 2) Status: Chronic 5. HTN (hypertension) Status: Chronic 6. 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 Subtherapeutic international normalized ratio (INR) 8. Leg edema, right Status: Chronic 9. Obesity Status: Chronic Comments: Patient seen and agree with above note, saline lock and wean off of O2 today, await Echo report. (Perfecto Benavides MD) Antibiotic Stewardship (2) Infxn that will respond? Yes Right drug,dose,and route? Yes More targeted antbx? No (Aleena Munguia) at 0850 at 0940
--- NOTE | 2016-07-22 09:33 | RADIOLOGY REPORT PS360 ---
PROCEDURE: 2-D M-mode and color Doppler study INDICATIONS FOR THE TEST: Chest pain COPDX Heart Murmur Tobacco Smoking Palpitations Fatigue Syncope Edema HypertensionXDiabetes MellitusX Rheumatic Fever SOBXDOE ObesityXHyperlipidemiaX Family History HD Additional History CHF,AF PATIENT INFORMATION HEIGHT: 69 WEIGHT:251 GENDER: Male B/P:133/70 2-D/M-MODE INTERPRETATION: 2-D MEASUREMENTS OBSERVED VALUES IN CMS Right Ventricular Dimension (RVDd) 2.7 Interventricular Septum (Thickness)(IVsd) 1.4 Left Ventricular Internal Dimensions(LVIDd) 4.7 Left Ventricular Posterior Wall (Thickness)(LVPWd) 1.2 Aortic Root 3.6 Aortic Cusp Separation 2.4 Left Atrial Dimensions (LAD) 3.4 2D 1. Technically difficult study because of the patient's factor and poor acoustic windows. 2. Left atrium is qualitatively moderately enlarged, left ventricle is normal size, there is mild concentric left ventricular hypertrophy present visually estimated to fraction 50-55% with no obvious regional wall motion abnormality. Abnormal septal motion. 3. The right atrium is moderately enlarged, right ventricle is mildly dilated with normal contractility. 4. Aortic valve is minimally thickened and fibrosed leaflet continue to display good mobility. 5. The mitral valve leaflets are minimally thickened, there is mild mitral calcification present there is no mitral stenosis. 6. The tricuspid valve leaflets are minimally thickened there is no tricuspid stenosis. 7. The pulmonic valve is not well visualized. 8. No significant pericardial effusion noted. DOPPLER INTERROGATION: Doppler interrogation of the aortic mitral and tricuspid valvular presence of mild mitral and moderate to severe tricuspid regurgitation, calculated right ventricular systolic pressure 61 mmHg consistent with the moderate pulmonary hypertension, inferior vena cava is mildly dilated with normal inspiratory collapse. CONCLUSION: 1. Technically difficult study because of the patient's factor and poor acoustic windows. 2. Moderate biatrial enlargement, normal left ventricular size, mild concentric left ventricular hypertrophy, visually estimated ejection fraction 50-55% with no obvious regional wall motion abnormality, there is abnormal septal motion. 3. Mildly dilated right ventricle with normal contractility. 4. Mild mitral and moderate to severe tricuspid regurgitation, calculated right ventricular systolic pressure 61 mmHg consistent with moderate pulmonary hypertension. 5. No significant pericardial effusion noted.
[2016-07-23 00:04] VITALS: BP 156/80
[2016-07-23 03:47] VITALS: BP 149/89
[2016-07-23 06:19] LABS: HEMOGLOBIN 10.6 g/dL (14.1-18.0); LYMPH % 25.7 % (10-50)
[2016-07-23 07:46] VITALS: BP 142/65
--- NOTE | 2016-07-23 08:27 | ACUTE CARE PROGRESS NOTE (QUA) ---
Progress Notes Subjective Date 07/23/16 Time 0818 Note Patient states he is feeling much better today. He denies any shortness of breath. His oxygen was checked on room air this morning while he was eating and it was 89-90 percent. Slept well and is eating well. Objective Findings Last VS-Temp:98.2 B/P:142/65 Pulse:98 Resp:20 SaO2:95 ROOM AIR Last weight lbs:251 oz:0 K.853 Method:Bed Scales Laboratory Tests 07/23/16 0600: Sodium 139, Potassium 4.3, Chloride 98, Carbon Dioxide 37 H, BUN 11, Creatinine 0.7 L, Estimated Creat Clear 124, Estimated GFR (MDRD) 107, Glucose 101, Calcium 8.9, PT 29.1 H, INR 2.72 H, WBC 7.7, RBC 4.28 L, Hgb 10.6 L, Hct 34.4 L, MCV 80.2 L, RDW 16.6, Plt Count 289, MPV 6.0 L, Gran % 62.8, Gran # 4.9, Lymphocytes % 25.7, Monocytes % 10.5 H, Eosinophils % 0.6, Basophils % 0.4 , Lymphocytes # 2.0, Monocytes # 0.8, Eosinophils # 0.1, Basophils # 0.0, PUBS MCHC 30.8 L, MCH 24.7 L 07/22/16 0845: PT 33.5 H, INR 3.13 H Echo 1. Technically difficult study because of the patient's factor and poor acoustic windows. 2. Moderate biatrial enlargement, normal left ventricular size, mild concentric left ventricular hypertrophy, visually estimated ejection fraction 50-55% with no obvious regional wall motion abnormality, there is abnormal septal motion. 3. Mildly dilated right ventricle with normal contractility. 4. Mild mitral and moderate to severe tricuspid regurgitation, calculated right ventricular systolic pressure 61 mmHg consistent with moderate pulmonary hypertension. 5. No significant pericardial effusion noted. Exam General appearance: alert, awake, no acute distress Cardiovascular: regular rate & rhythm Respiratory: clear to auscultation ABD: non-distended, normal bowel sounds, no rebound, soft, no tenderness, no guarding Extremities: 1+ pretibial edema bilaterally Assessment/Plan Problem List 1. RLL pneumonia Status: Acute 2. Influenza A Status: Acute 3. Hypokalemia Status: Acute 4. DM2 (diabetes mellitus, type 2) Status: Chronic 5. HTN (hypertension) Status: Chronic 6. 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 Subtherapeutic international normalized ratio (INR) 8. Leg edema, right Status: Chronic 9. Obesity Status: Chronic Plan: Echo reviewed. Oxygen on RA is 89-90% on RA. Will discuss disposition with Dr. Benavides. This inpt stay is expected to cross 2 MNs from start of care No (Aleena Munguia) Assessment/Plan Problem List 1. RLL pneumonia Status: Acute 2. Influenza A Status: Acute 3. Hypokalemia Status: Acute 4. DM2 (diabetes mellitus, type 2) Status: Chronic 5. HTN (hypertension) Status: Chronic 6. 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 Subtherapeutic international normalized ratio (INR) 8. Leg edema, right Status: Chronic 9. Obesity Status: Chronic Comments: Patient seen and agree with above note. Patient wants to go home. OK to discharge today, f/u with primary MD in 3 or 4 days. (Perfecto Benavides MD) Antibiotic Stewardship (2) Infxn that will respond? Yes Right drug,dose,and route? Yes More targeted antbx? No (Aleena Munguia) at 0827 at 0900
[2016-07-23 08:34] VITALS: BP 142/65
[2016-07-23] MEDS ORDERED: Zithromax500 MG PO (09:04)
[2016-07-23] MEDS ORDERED: CEFDINIR300 M1 PO (09:04)
[2016-07-23 10:56] VITALS: BP 142/65
--- NOTE | 2016-07-29 11:46 | DISCHARGE SUMMARY STANDARD ---
Discharge Summary (FCA2) Date of admission: 07/17/16 Date of discharge: 07/23/16 Problem List: 1. RLL pneumonia 2. Influenza A 3. Hypokalemia 4. DM2 (diabetes mellitus, type 2) 5. HTN (hypertension) 6. 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 Subtherapeutic international normalized ratio (INR) 8. Leg edema, right 9. Obesity History of present illness: Mr. Purvis is an 86 year old male who receives his primary care at [facility] in [place], [place]. He presented to [facility] ER complaining of a 2 day history of cough and congestion associated with low grade fever and body aches. He could not remember any sick contacts. He had not taken any treatment at home. Hewas somewhat of a poor historian and no family was present at time of initial exam. Most of the history was learned from discussion with the ER doctor and the ER note. Exam on admission: General appearance: alert, awake, no acute distress Eyes: anicteric ENT: mucous membranes moist Neck: supple Cardiovascular: regular rate & rhythm Respiratory: good air movement, crackles (right posterior lung mireles) ABD: normal bowel sounds, soft, no tenderness Extremities: edema (right lower) Skin: warm Neuro: alert, student ambassador II-XII nml as tested, no focal deficit Hospital Course: The patient was diagnosed with flu and pneumonia. He was started on tamiflu, zithromax, and rocephin. His potassium had to be replaced. He improved throughout his stay. He did have a repeat CXR showing some CHF, so he was given lasix and an echo was ordered. It showed LVH, an EF of 50-55%, mild mitral regurgitation, and moderate to severe tricuspid regurgitation. There was evidence of pulmonary HTN. He was able to be weaned off of his oxygen and got up and OOB. He was stable to be discharged home and would need to f/u with his PCP in 3-4 days. Discharge medications: Continue taking these medications: OXYCODONE HCL/ACETAMINOPHEN (Percocet 5-325 MG Tablet) 1 EACH TABLET 1 TABLET ORAL EVERY 6 HOUR Metoprolol Succinate Xl (Metoprolol ER 50MG) 50 MG TAB.ER.24H 50 MILLIGRAM ORAL DAILY METFORMIN HCL (Metformin 500MG) 500 MG TABLET 500 MILLIGRAM ORAL TWICE A DAY WARFARIN SOD (Warfarin 1MG) 1 MG TABLET 2 MILLIGRAM ORAL DAILY HYDROCHLOROTHIAZIDE (Hydrochlorothiazide) 25 MG TABLET 25 MILLIGRAM ORAL DAILY BUDESONIDE/FORMOTEROL FUMARATE (Symbicort 160-4.5 Mcg Inhaler) 10.2 GM HFA.AER.AD 2 PUFF INHALATION TWICE A DAY Start taking the following new medications: Azithromycin (Zithromax) 500 MG TABLET 500 MILLIGRAM ORAL DAILY Qty = 3 No Refills Cefdinir (Cefdinir) 300 MG CAPSULE 300 MILLIGRAM ORAL TWICE A DAY Qty = 10 No Refills Disposition: F/U with: LIZ MENDENHALL Follow up: 4 DAYS Activity: Cont Current activity Diet: Continue same diet Discharge to: HOME Agency needed? N at 1141
--- NOTE | 2016-07-29 11:46 | DISCHARGE SUMMARY STANDARD ---
Discharge Summary (FCA2) Date of admission: 07/17/16 Date of discharge: 07/23/16 Problem List: 1. RLL pneumonia 2. Influenza A 3. Hypokalemia 4. DM2 (diabetes mellitus, type 2) 5. HTN (hypertension) 6. 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 Subtherapeutic international normalized ratio (INR) 8. Leg edema, right 9. Obesity History of present illness: Mr. Purvis is an 86 year old male who receives his primary care at [facility] in [place], [place]. He presented to [facility] ER complaining of a 2 day history of cough and congestion associated with low grade fever and body aches. He could not remember any sick contacts. He had not taken any treatment at home. Hewas somewhat of a poor historian and no family was present at time of initial exam. Most of the history was learned from discussion with the ER doctor and the ER note. Exam on admission: General appearance: alert, awake, no acute distress Eyes: anicteric ENT: mucous membranes moist Neck: supple Cardiovascular: regular rate & rhythm Respiratory: good air movement, crackles (right posterior lung mireles) ABD: normal bowel sounds, soft, no tenderness Extremities: edema (right lower) Skin: warm Neuro: alert, chief legal officer II-XII nml as tested, no focal deficit Hospital Course: The patient was diagnosed with flu and pneumonia. He was started on tamiflu, zithromax, and rocephin. His potassium had to be replaced. He improved throughout his stay. He did have a repeat CXR showing some CHF, so he was given lasix and an echo was ordered. It showed LVH, an EF of 50-55%, mild mitral regurgitation, and moderate to severe tricuspid regurgitation. There was evidence of pulmonary HTN. He was able to be weaned off of his oxygen and got up and OOB. He was stable to be discharged home and would need to f/u with his PCP in 3-4 days. Discharge medications: Continue taking these medications: OXYCODONE HCL/ACETAMINOPHEN (Percocet 5-325 MG Tablet) 1 EACH TABLET 1 TABLET ORAL EVERY 6 HOUR Metoprolol Succinate Xl (Metoprolol ER 50MG) 50 MG TAB.ER.24H 50 MILLIGRAM ORAL DAILY METFORMIN HCL (Metformin 500MG) 500 MG TABLET 500 MILLIGRAM ORAL TWICE A DAY WARFARIN SOD (Warfarin 1MG) 1 MG TABLET 2 MILLIGRAM ORAL DAILY HYDROCHLOROTHIAZIDE (Hydrochlorothiazide) 25 MG TABLET 25 MILLIGRAM ORAL DAILY BUDESONIDE/FORMOTEROL FUMARATE (Symbicort 160-4.5 Mcg Inhaler) 10.2 GM HFA.AER.AD 2 PUFF INHALATION TWICE A DAY Start taking the following new medications: Azithromycin (Zithromax) 500 MG TABLET 500 MILLIGRAM ORAL DAILY Qty = 3 No Refills Cefdinir (Cefdinir) 300 MG CAPSULE 300 MILLIGRAM ORAL TWICE A DAY Qty = 10 No Refills Disposition: F/U with: LIZ MENDENHALL Follow up: 4 DAYS Activity: Cont Current activity Diet: Continue same diet Discharge to: HOME Agency needed? N at 1145
== END 2016-07-23 11:05 | disposition home or self-care (01) | DRG 195 ==
LOC: ER 18:50 → 2ND 20:56
PROVIDERS: Emergency Medicine; Family Medicine; General Practice
DX: J10.00 Influenza due to other identified influenza virus with unspecified type of pneumonia (principal); E11.9 Type 2 diabetes mellitus without complications; I10 Essential (primary) hypertension; R79.1 Abnormal coagulation profile; Z85.038 Personal history of other malignant neoplasm of large intestine; Z85.51 Personal history of malignant neoplasm of bladder; Z86.718 Personal history of other venous thrombosis and embolism; Z79.01 Long term (current) use of anticoagulants; Z87.891 Personal history of nicotine dependence; E87.6 Hypokalemia
CPT/HCPCS: J0456